=== PATIENT | female | born 1985 | race Two or more races ===

== ENCOUNTER 2020-04-14 07:27 | Emergency (ER) | payer OTHER ==
[2020-04-14 07:34] VITALS: BP 115/73; PULSE 95; TEMP 98.7; BMI 29.9
[2020-04-14] MEDS ORDERED: PHENAZOPYRIDINE HCL 100 MG TABLET (FP) PO ONE (07:47)
[2020-04-14] MEDS ORDERED: ACETAMINOPHEN 325 MG TABLET (FP) PO ONE (07:47)
[2020-04-14] MEDS ORDERED: ACETAMINOPHEN 325 MG TABLET (FP) ONE (08:20)
[2020-04-14] MEDS ORDERED: PHENAZOPYRIDINE HCL 100 MG TABLET (FP) ONE (08:20)
[2020-04-14 08:25] LABS: BASO % 0.2 % (0-2.0); EOS % 0.3 % (0-4.5); HEMOGLOBIN 11.4 GM/dL (10.7-15.3); MCH 31.6 pg (25.7-33.7); MCHC 33.4 g/dl (32.0-36.0); MEAN CELL VOLUME 94.4 fl (80-96); MEAN PLT VOLUME 7.5 fl (7.5-11.1); MONO % 6.1 % (3.8-10.2); NEUT % 74.4 % (42.8-82.8); PLATELET COUNT 315 K/MM3 (134-434)
[2020-04-14 08:26] LABS: PH,URINE 7.5 (5.0-8.0); URINE APPEARANCE CLEAR; URINE BILIRUBIN NEGATIVE (NEGATIVE); URINE COLOR YELLOW; URINE GLUCOSE (UA) NEGATIVE (NEGATIVE); URINE KETONE NEGATIVE (NEGATIVE); URINE LEUK ESTERASE NEGATIVE (NEGATIVE); URINE NITRITE NEGATIVE (NEGATIVE); URINE PROTEIN NEGATIVE (NEGATIVE); URINE UROBILINOGEN 0.2 mg/dL (0.2-1.0)
[2020-04-14 08:48] LABS: POTASSIUM 4.2 mmol/L (3.5-5.1)
[2020-04-14 08:50] LABS: ALBUMIN 3.1 g/dl (3.4-5.0)
[2020-04-14 08:51] LABS: BLOOD UREA NITROGEN 7.3 mg/dL (7-18)
[2020-04-14 08:54] LABS: CREATININE 0.5 mg/dL (0.55-1.3)
[2020-04-14 08:55] LABS: BILIRUBIN,TOTAL 0.3 mg/dL (0.2-1); TOT PROT 6.6 g/dl (6.4-8.2)
== END 2020-04-14 09:02 | disposition home or self-care (01) ==
LOC: JER 07:27
DX: O26.892 Other specified pregnancy related conditions, second trimester (principal); Z3A.14 14 weeks gestation of pregnancy
CPT/HCPCS: 36415; 76801-TC; 80053; 81003; 84702; 85025; 87086; 99284-25

== ENCOUNTER 2020-04-28 07:30 | Emergency (ER) | payer OTHER ==
[2020-04-28 07:43] VITALS: BMI 30.2
[2020-04-28] MEDS ORDERED: ACETAMINOPHEN 1000 MG/100 ML VIAL (NON FORMULARY) IVPB ONE (08:08)
[2020-04-28 09:15] LABS: BASO % 0.2 % (0-2.0); EOS % 0.6 % (0-4.5); HEMATOCRIT 35.2 % (32.4-45.2); HEMOGLOBIN 11.5 GM/dL (10.7-15.3); LYMPH % 22.8 % (8-40); MCH 31.3 pg (25.7-33.7); MCHC 32.7 g/dl (32.0-36.0); MEAN CELL VOLUME 95.8 fl (80-96); MEAN PLT VOLUME 7.6 fl (7.5-11.1); MONO % 7.6 % (3.8-10.2); NEUT % 68.8 % (42.8-82.8); PLATELET COUNT 312 K/MM3 (134-434); RBC 3.68 M/mm3 (3.60-5.2); WHITE BLOOD COUNT 9.7 K/mm3 (4.0-10.0)
[2020-04-28 09:29] LABS: PH,URINE 8.5 (5.0-8.0); URINE APPEARANCE CLOUDY; URINE BILIRUBIN NEGATIVE (NEGATIVE); URINE COLOR YELLOW; URINE GLUCOSE (UA) NEGATIVE (NEGATIVE); URINE KETONE NEGATIVE (NEGATIVE); URINE LEUK ESTERASE NEGATIVE (NEGATIVE); URINE NITRITE NEGATIVE (NEGATIVE); URINE PROTEIN NEGATIVE (NEGATIVE); URINE UROBILINOGEN 0.2 mg/dL (0.2-1.0)
[2020-04-28 09:40] LABS: ALBUMIN 3.1 g/dl (3.4-5.0)
[2020-04-28 09:41] LABS: BLOOD UREA NITROGEN 5.7 mg/dL (7-18); CALCIUM 9.4 mg/dL (8.5-10.1)
[2020-04-28 09:44] LABS: CREATININE 0.4 mg/dL (0.55-1.3)
[2020-04-28 09:45] LABS: BILIRUBIN,TOTAL 0.2 mg/dL (0.2-1); TOT PROT 6.9 g/dl (6.4-8.2)
[2020-04-28 11:54] VITALS: BP 125/77; PULSE 77; TEMP 98
== END 2020-04-28 11:45 | disposition home or self-care (01) ==
LOC: JER 07:30
PROC: 3E033NZ Introduction of Analgesics, Hypnotics, Sedatives into Peripheral Vein, Percutaneous Approach (ICD-10-PCS; principal; 2020-04-28)
DX: R10.9 Unspecified abdominal pain (principal)
CPT/HCPCS: 36415; 76815-TC; 80053; 81003; 84702; 85025; 86850; 86900; 86901; 87086; 99284-25; J0131

== ENCOUNTER 2020-09-09 10:34 | Emergency (ER) | payer OTHER ==
[2020-09-09 10:42] VITALS: BMI 34.0
[2020-09-09] MEDS ORDERED: ACETAMINOPHEN 1000 MG/100 ML VIAL (NON FORMULARY) IVPB ONE (11:27)
[2020-09-09] MEDS ORDERED: MAGNESIUM SULF 50% (8.12 MEQ/2 ML-1 GM VIAL) IVPB ONE (11:42)
[2020-09-09] MEDS ORDERED: METOCLOPRAMIDE HCL INJECTION 10 MG/2 ML VIAL IVPUSH ONE (11:42)
[2020-09-09] MEDS ORDERED: LACTATED RINGERS SOLUTION 1000 ML INFUS.BAG IV ONE ×2 (11:43→14:22)
[2020-09-09] MEDS ORDERED: ACETAMINOPHEN INJECTION 0 ML IVPB ONE (12:02)
[2020-09-09] MEDS ORDERED: METOCLOPRAMIDE HCL INJECTION 10 MG/2 ML VIAL ONE (12:02)
[2020-09-09] MEDS ORDERED: MAGNESIUM SULFATE IN WATER 2 GM/50 ML IVPB IVPB ONE (12:02)
[2020-09-09 12:11] LABS: BASO % 0.3 % (0-2.0); EOS % 0.3 % (0-4.5); HEMATOCRIT 33.1 % (32.4-45.2); HEMOGLOBIN 11.1 GM/dL (10.7-15.3); MCH 31.3 pg (25.7-33.7); MCHC 33.6 g/dl (32.0-36.0); MEAN CELL VOLUME 93.1 fl (80-96); MEAN PLT VOLUME 8.7 fl (7.5-11.1); MONO % 9.3 % (3.8-10.2); NEUT % 68.1 % (42.8-82.8); PLATELET COUNT 281 K/MM3 (134-434); RBC 3.56 M/mm3 (3.60-5.2); RDW 13.8 % (11.6-15.6); URINE APPEARANCE CLEAR; URINE BILIRUBIN NEGATIVE (NEGATIVE); URINE COLOR YELLOW; URINE GLUCOSE (UA) NEGATIVE (NEGATIVE); URINE KETONE NEGATIVE (NEGATIVE); URINE LEUK ESTERASE NEGATIVE (NEGATIVE); URINE NITRITE NEGATIVE (NEGATIVE); URINE PROTEIN NEGATIVE (NEGATIVE); WHITE BLOOD COUNT 6.7 K/mm3 (4.0-10.0)
[2020-09-09 12:29] LABS: ALBUMIN 2.5 g/dl (3.4-5.0); MAGNESIUM 1.8 mg/dL (1.8-2.4)
[2020-09-09 12:31] LABS: URIC ACID 4.4 mg/dL (2.6-7.2)
[2020-09-09 12:32] LABS: CREATININE 0.5 mg/dL (0.55-1.3); PHOSPHOROUS 3.7 mg/dL (2.5-4.9)
[2020-09-09 12:34] LABS: BILIRUBIN,TOTAL 0.3 mg/dL (0.2-1); TOT PROT 6.1 g/dl (6.4-8.2)
[2020-09-09 15:51] VITALS: TEMP 98.6
[2020-09-09 15:57] VITALS: BP 123/76; PULSE 78
== END 2020-09-09 16:55 | disposition home or self-care (01) ==
LOC: JER 10:34
DX: R51.9 Headache, unspecified (principal)
CPT/HCPCS: 36415; 76815-TC; 80053; 81003; 83615; 83735; 84100; 84550; 85025; 87086; 99281-25

== ENCOUNTER 2020-09-30 06:15 | Inpatient (IN) | payer OTHER ==
[2020-09-30 06:53] VITALS: BMI 34.7
[2020-09-30] MEDS ORDERED: CITRIC ACID/SODIUM CITRATE 30 ML UNIT-DOSE CUP PO ONE (07:49)
[2020-09-30] MEDS ORDERED: ELECTROLYTE-148 SOLN 500 ML IV ONE (07:49)
[2020-09-30] MEDS ORDERED: ELECTROLYTE-148 SOLN 1,000 ML IV SCH (08:00)
[2020-09-30] MEDS ORDERED: LIGASURE IMPACT TP ONE (08:01)
[2020-09-30] MEDS ORDERED: PHENYLEPHRINE HCL 10 MG/1 ML SINGLE DOSE VIAL ONE (08:16)
[2020-09-30] MEDS ORDERED: morphine SULFATE/PF 0.5 MG/ML (2cc Syringe - QUVA) ONE (08:16)
[2020-09-30] MEDS ORDERED: OXYTOCIN 20 UNITS in 0.9% NS 20 UNIT/1,000 ML INFUS.BAG IV SCH (08:30)
[2020-09-30] MEDS ORDERED: OXYTOCIN 10 UNITS/ML VIAL ONE ×4 (09:02)
[2020-09-30 09:18] LABS: CORD BASE EXCESS -9.3 mmol/L (0-2); CORD HCO3 19.8 mmHg (20-29); CORD PCO2 56.7 mmHg (30-78); CORD pH 7.162 (7.14-7.44)
[2020-09-30 09:25] LABS: CORD BASE EXCESS -9.5 mmol/L (0-2); CORD HCO3 17.8 mmHg (20-29); CORD PCO2 43.5 mmHg (30-78); CORD pH 7.23 (7.14-7.44)
[2020-09-30] MEDS ORDERED: IBUPROFEN 600 MG TABLET (FP) PO PRN (09:43)
[2020-09-30] MEDS ORDERED: ACETAMINOPHEN 325 MG TABLET (FP) PO PRN (09:43)
[2020-09-30] MEDS ORDERED: OXYTOCIN 20 UNITS in 0.9% NS 20 UNIT/1,000 ML INFUS.BAG IV ONE (10:11)
[2020-09-30] MEDS: IBUPROFEN 800 MG/8 ML IJ IVPB PRN (19:52)
[2020-10-01] MEDS: IBUPROFEN 800 MG/8 ML IJ IVPB PRN (05:54)
[2020-10-01] MEDS ORDERED: BISACODYL 10 MG SUPP.RECT RC PRN (08:21)
[2020-10-01 08:46] LABS: BASO % 0.1 % (0-2.0); EOS % 0.1 % (0-4.5); HEMATOCRIT 31.6 % (32.4-45.2); HEMOGLOBIN 10.4 GM/dL (10.7-15.3); LYMPH % 13.5 % (8-40); MCHC 32.9 g/dl (32.0-36.0); MEAN CELL VOLUME 94.2 fl (80-96); MEAN PLT VOLUME 8.9 fl (7.5-11.1); MONO % 8.6 % (3.8-10.2); NEUT % 77.7 % (42.8-82.8); PLATELET COUNT 267 K/MM3 (134-434); RBC 3.36 M/mm3 (3.60-5.2); RDW 14.6 % (11.6-15.6); WHITE BLOOD COUNT 11.9 K/mm3 (4.0-10.0)
[2020-10-01] MEDS: oxyCODONE HCL 5 MG TABLET PO PRN ×2 (11:32→22:04)
[2020-10-01] MEDS: ACETAMINOPHEN 325 MG TABLET (FP) PO PRN ×2 (11:33→22:03)
[2020-10-01] MEDS: SIMETHICONE 80 MG TAB.CHEW (FP) PO PRN ×2 (14:32→22:05)
[2020-10-01] MEDS: IBUPROFEN 600 MG TABLET (FP) PO PRN (22:02)
[2020-10-02 10:41] VITALS: BP 121/66; PULSE 86; TEMP 98.4
[2020-10-02] MEDS: IBUPROFEN 600 MG TABLET (FP) PO PRN (11:25)
[2020-10-02] MEDS: SIMETHICONE 80 MG TAB.CHEW (FP) PO PRN (11:26)
[2020-10-02] MEDS: ACETAMINOPHEN 325 MG TABLET (FP) PO PRN (11:26)
== END 2020-10-02 17:20 | disposition home or self-care (01) | DRG 540 ==
LOC: JLDR 06:15 → J3W 11:43
PROVIDERS: ADMIT Student in an Organized Health Care Education/Training Program; ATTEND Student in an Organized Health Care Education/Training Program
PROC: 10D00Z1 Extraction of Products of Conception, Low, Open Approach (ICD-10-PCS; principal; 2020-09-30)
PROC: 0UT70ZZ Resection of Bilateral Fallopian Tubes, Open Approach (ICD-10-PCS; 2020-09-30)
DX: O34.211 Maternal care for low transverse scar from previous cesarean delivery (principal); Z37.0 Single live birth; Z3A.39 39 weeks gestation of pregnancy; Z30.2 Encounter for sterilization
CPT/HCPCS: 36415; 36600; 82803; 85025; 88302-TC; 88307-TC

== ENCOUNTER 2024-10-30 16:45 | Emergency (ER) | payer OTHER ==
[2024-10-30 16:57] VITALS: BP 117/77; PULSE 90; RESP 19; TEMP 98.2; BMI 28.9
== END 2024-10-30 18:22 | disposition home or self-care (01) ==
LOC: JERFT 16:45 → JER 16:45 → JERFT 18:22
DX: S93.491A Sprain of other ligament of right ankle, initial encounter (principal); X50.1XXA Overexertion from prolonged static or awkward postures, initial encounter; Y99.0 Civilian activity done for income or pay
CPT/HCPCS: 73610-TC-RT-FY; 99283-25